=== PATIENT | female | born 1950 | race Caucasian/White ===

== ENCOUNTER 2017-01-24 19:11 | Emergency (ER) | payer MEDICARE ==
[~2017-01-24] VITALS: Ht 165.1 cm; Wt 95.2 kg
[2017-01-24 19:23] VITALS: BP 154/101
[2017-01-24] MEDS ORDERED: DEXAMETHASONE 4 MG/ML, 1ML PO ONE (20:00)
[2017-01-24] MEDS ORDERED: HYDROcodone/APAP 7.5-325MG/15ML UDC PO ONE (20:00)
[2017-01-24] MEDS ORDERED: PLEASE ENTER ALLERGIES MC SCH ×2 (20:00)
[2017-01-24] MEDS ORDERED: DEXAMETHASONE 4 MG TABLET ONE (21:33)
[2017-01-24] MEDS ORDERED: DEXAMETHASONE 4 MG TABLET PO ONE (22:00)
== END 2017-01-24 21:41 | disposition home or self-care (01) ==
LOC: ED 21:35
DX: J02.0 Streptococcal pharyngitis (principal)
CPT/HCPCS: 87081; 87147; 87880; 99283; 99284